=== PATIENT | male | born 1985 | race Native Hawaiian/Other Pacific Islander ===

== ENCOUNTER 2021-10-12 04:06 | Emergency (ER) | payer OTHER ==
[~2021-10-12] VITALS: Ht 165.1 cm; Wt 72.6 kg
[2021-10-12] MEDS ORDERED: [UNRECOGNIZED DRUG - OTHER] PO (04:33)
[2021-10-12 05:30] VITALS: BP 131/84; TEMP 98.6
== END 2021-10-12 05:30 | disposition home or self-care (01) ==
LOC: ED 04:06
DX: L03.113 Cellulitis of right upper limb (principal); S60.561A Insect bite (nonvenomous) of right hand, initial encounter; S60.861A Insect bite (nonvenomous) of right wrist, initial encounter; W57.XXXA Bitten or stung by nonvenomous insect and other nonvenomous arthropods, initial encounter; Y92.098 Other place in other non-institutional residence as the place of occurrence of the external cause
CPT/HCPCS: 99282